=== PATIENT | male | born 1975 | race Caucasian/White ===

== ENCOUNTER 2017-05-23 18:21 | Emergency (ER) | payer OTHER, SELFPAY ==
[~2017-05-23] VITALS: Ht 185.4 cm; Wt 70.3 kg
[2017-05-23] MEDS ORDERED: LIDOCAINE 1% VIAL ONE (18:46)
--- NOTE | 2017-05-23 18:49 | ER.PDOC ---
General Chief Complaint: Extremities Stated Complaint: GASH ON LEFT ARM Time seen by MD: 18:47 Source: patient Exam Limitations: no limitations History of Present Illness Initial Comments Laceration left wrist Occurred: just prior to arrival Where: home Severity: moderate Context: laceration Allergies: Coded Allergies: Penicillins (Verified Allergy, Unknown, Rash, 05/23/17) Past Medical History Medical History: asthma Surgical History: appendectomy Social History Smoking: cigarettes, greater than 1 pack/day Alcohol Use: none Drug Use: none Review of Systems Constitutional: no symptoms reported Respiratory: no symptoms reported Cardiovascular: no symptoms reported Gastrointestinal: no symptoms reported Skin: see HPI All Other Systems: Reviewed and Negative Physical Exam General Appearance: Alert, No Apparent Distress Hand: nml inspection, non-tender, no evidence FB Wrist: see diagram 1 - Lac Neuro: sensation nml, motor nml Vascular: no vascular compromise Tendons: tendon visualized, injury seen, tendon function deficit Head/ENT: nml inspection, pharynx nml Neck/Back: nml inspection, non-tender Resp/CVS: no resp distress, lungs clear, heart sounds nml, reg. rate & rhythm Abdomen: non-tender, no organomegaly Laceration/Wound Repair Laceration/Wound Repair : Wound Location: left wrist Wound Length (cm): 4 Wound cleaned: betadine Anesthesia: 1% Lidocaine Volume Anesthetic (ccs): 10 Wound's Depth, Shape: linear, into muscle Irrigated w/ Saline (ccs): 30 Wound Repaired With: sutures Suture Size/Type: 4:0, ethilon Suture Style: interupted Number of Sutures: 6 Deep Layer Suture Size/Type: 4:0, vicryl Number Deep Layer Sutures: 4 Sterile Dressing Applied?: Yes Progress Progress Called and spoke to Dr. Damian because of tendon injury, he told me to close Laceration and have patient go to his office and see him tomorrow at 9am. Told patient and he voiced understanding. Departure Time of Disposition: 19:29 Disposition: 01 HOME, SELF-CARE Impression: Primary Impression: Laceration of wrist, left Qualified Codes: S61.512A - Laceration without foreign body of left wrist, initial encounter Condition: Stable Referrals: PCP,UNKNOWN (PCP) PRIMARY CARE PROVIDER Additional Instructions: Tramadol Keflex Follow up with Dr. Damian tomorrow at 9am ROBERTO GARNER MD May 23, 2017 18:49
[2017-05-23] MEDS ORDERED: BOOSTRIX VACCINE SYRINGE IM STA (19:31)
[2017-05-23] MEDS ORDERED: TRIPLE ANTIBIOTIC OINTMENT TP ONE (19:32)
[2017-05-23] MEDS ORDERED: TETANUS DIPHTHERIA TOXOIDS IM ONE (19:32)
[2017-05-23 19:44] VITALS: BP 162/87
[2017-05-24] MEDS ORDERED: TRAM50TA PO (15:05)
[2017-05-24] MEDS ORDERED: IBUP200C8 PO (15:05)
[2017-05-24] MEDS ORDERED: CHOL10005 PO (15:05)
[2017-05-24] MEDS ORDERED: MULT1TAB52 PO (15:05)
== END 2017-05-23 19:42 | disposition home or self-care (01) ==
LOC: EDBD 18:21 → ER 18:21
DX: S61.512A Laceration without foreign body of left wrist, initial encounter (principal); F17.210 Nicotine dependence, cigarettes, uncomplicated; Z88.0 Allergy status to penicillin; X58.XXXA Exposure to other specified factors, initial encounter; Y93.89 Activity, other specified; Y92.009 Unspecified place in unspecified non-institutional (private) residence as the place of occurrence of the external cause; Y99.8 Other external cause status
CPT/HCPCS: 12032; 90471; 90714; 99284; J2001

== ENCOUNTER 2017-05-27 02:57 | Day surgery (SDC) | payer OTHER, SELFPAY ==
[2017-05-27] VITALS (11 sets, daily range): BP systolic 133–161; BP diastolic 78–99
[~2017-05-27] VITALS: Ht 185.4 cm; Wt 68.0 kg
[~2017-05-27 02:57] MED LIST: CHOL10005 PO; IBUP200C8 PO; MULT1TAB52 PO; TRAM50TA PO
[2017-05-27] MEDS ORDERED: LACTATED RINGERS 1,000 ML ONE ×2 (04:52→08:58)
[2017-05-27] MEDS ORDERED: CEPH-350 PO (06:06)
[2017-05-27] MEDS: LACTATED RINGERS 1,000 ML IV SCH ×2 (06:13→09:00)
[2017-05-27] MEDS ORDERED: DECADRON ONE (06:43)
[2017-05-27] MEDS ORDERED: NEOSTIGMINE ONE (06:44)
[2017-05-27] MEDS ORDERED: ZOFRAN ONE (06:44)
[2017-05-27] MEDS ORDERED: XYLOCAINE ONE (06:44)
[2017-05-27] MEDS ORDERED: TORADOL ONE (06:44)
[2017-05-27] MEDS ORDERED: ZEMURON IV ONE (06:44)
[2017-05-27] MEDS ORDERED: SUBLIMAZE ONE (06:45)
[2017-05-27] MEDS ORDERED: DILAUDID ONE ×2 (06:45→09:49)
[2017-05-27] MEDS ORDERED: VERSED ONE (06:45)
[2017-05-27] MEDS ORDERED: DIPRIVAN IV ONE (06:46)
[2017-05-27] MEDS ORDERED: SODIUM CHLORIDE IR ONE (07:13)
[2017-05-27] MEDS ORDERED: VENTOLIN IH ONE ×2 (07:13→07:30)
[2017-05-27] MEDS ORDERED: SENSORCAINE-MPF 0.5% VIAL ONE (07:41)
[2017-05-27] MEDS ORDERED: XYLOCAINE 2%-EPI 1:100,000 ONE (07:41)
[2017-05-27] MEDS ORDERED: ANCEF ONE (08:32)
[2017-05-27] MEDS ORDERED: ANCEF 1 GM in NS 100ML 100 ML IV ONE (08:35)
[2017-05-27] MEDS: DILAUDID IV PRN ×2 (09:53→10:00)
[2017-05-27] MEDS ORDERED: ZOFRAN IV PRN (10:00)
[2017-05-27] MEDS ORDERED: PHENERGAN IV PRN (10:00)
[2017-05-27] MEDS ORDERED: BENADRYL IV PRN (10:00)
[2017-05-27] MEDS ORDERED: DILAUDID IV PRN (10:00)
--- NOTE | 2017-05-27 10:08 | OPH ---
DATE OF SURGERY: 05/27/2017 PREOPERATIVE DIAGNOSIS: Laceration of dorsal aspect of left forearm with extensor tendon laceration to little finger. POSTOPERATIVE DIAGNOSIS: Laceration of dorsal aspect of left forearm with extensor tendon laceration to little finger, plus laceration of the extensor digitorum communis tendons to the index, long, ring, and little fingers. OPERATIVE PROCEDURES: 1. Incision and debridement of left forearm wound. 2. Repair of extensor digitorum communis tendons to the index, long, ring, and little fingers. SURGEON: Waqas Damian MD TAG CLERK: Susan Borja PA-C ANESTHESIA: LMA TOURNIQUET TIME: 57 minutes at 300 mmHg DRAINS: None BLOOD LOSS: 10 mL DESCRIPTION OF INDICATIONS: The patient is a 42-year-old male, who about 5 days ago, was using the minor saw and cut the dorsal aspect of his left forearm at the distal third. The patient was seen in the Emergency Room and his wounds were irrigated and closed. He was unable to extend his little finger, but was able to extend the wrist as well as his other fingers. He was seen in the office last week and scheduled for an incision and debridement of his wound with repair of the extensor tendons. DESCRIPTION OF PROCEDURE: This patient was placed on the operating table in the supine position. LMA anesthesia was induced without difficulty. The patient had a well-padded tourniquet placed around the left upper extremity. The left upper extremity was then sterilely prepped and draped. The arm was exsanguinated with an Esmarch and then inflated to 300 mmHg. The patient's incision which was transverse, was excised full thickness, in an elliptical manner. The fourth dorsal compartment was explored. He had lacerations of basically of all of the common extensor tendons except for the index finger, which had a laceration to the proprius tendon. The extensor thumb tendon was intact. The ulnar wrist extensor was intact. The wounds were copiously irrigated. The proximal and distal ends of the tendons were identified. The tendons were repaired with a 3-0 Prolene in an interrupted [id number] manner. We then reinforced the repair with a running 3-0 Ethilon. At the end, the patient was able to bring the fingers down onto the palm of his hand with the wrist in neutral position. The wounds were irrigated and then closed. The skin was closed with 3-0 Ethilon in an interrupted manner. A compressive dressing was applied. The patient was extubated in the operating room after an extension splint was applied and sent to recovery in a stable condition. Waqas Damian MD DR: KISHORE/micheal JOB# [id number]
[2017-05-27] MEDS ORDERED: ACET-687 PO (10:09)
[2017-05-27] MEDS ORDERED: SULF1TAB24 PO (10:10)
== END 2017-05-27 10:35 | disposition home or self-care (01) | DRG 605 ==
LOC: EDBD → SURG 02:57
PROVIDERS: ATTEND Orthopaedic Surgery
DX: S51.812A Laceration without foreign body of left forearm, initial encounter (principal); S56.428A Laceration of extensor muscle, fascia and tendon of left little finger at forearm level, initial encounter; S56.422A Laceration of extensor muscle, fascia and tendon of left index finger at forearm level, initial encounter; S56.426A Laceration of extensor muscle, fascia and tendon of left ring finger at forearm level, initial encounter; S56.424A Laceration of extensor muscle, fascia and tendon of left middle finger at forearm level, initial encounter; J45.909 Unspecified asthma, uncomplicated; W45.8XXA Other foreign body or object entering through skin, initial encounter; Y93.89 Activity, other specified; Y92.89 Other specified places as the place of occurrence of the external cause; Y99.8 Other external cause status; Z98.890 Other specified postprocedural states; Z90.49 Acquired absence of other specified parts of digestive tract; Z88.1 Allergy status to other antibiotic agents; Z88.0 Allergy status to penicillin; Z72.89 Other problems related to lifestyle; F17.210 Nicotine dependence, cigarettes, uncomplicated
CPT/HCPCS: 26418 ×3; 94640; A4649 ×2; J0690; J1100; J1170 ×2; J1885; J2250; J2405; J3010; J3490 ×4; J7030; J7120 ×2; J7613; J2710

== ENCOUNTER 2018-07-07 17:27 | Emergency (ER) | payer OTHER, SELFPAY ==
[~2018-07-07] VITALS: Ht 188 cm; Wt 65.8 kg
[~2018-07-07 17:27] MED LIST changes: +ACET-687 PO; +CEPH-350 PO; +SULF1TAB24 PO
[2018-07-07 18:26] VITALS: BP 120/55
--- NOTE | 2018-07-07 18:57 | DIREP ---
PROCEDURE:CHEST 2 VIEWS COMPARISON:None. INDICATIONS:cough x 2 weeks FINDINGS: LUNGS/PLEURA:Dense alveolar opacity is noted in the right upper lobe consistent with pneumonia. The lungs are hyperexpanded suggesting underlying COPD. VASCULATURE:Normal. Unremarkable pulmonary vasculature. Atherosclerotic disease of the thoracic aorta is noted. CARDIAC:Normal. No cardiac silhouette abnormality or cardiomegaly. MEDIASTINUM:Normal. No visible mass or adenopathy. BONES:Normal. No fracture or visible bony lesion. OTHER:Negative. CONCLUSION: 1. Right upper lobe pneumonia upon a background of chronic lung disease. Dictated by: Eulalio Up M.D. on 07/07/2018 at 06:54 PM
--- NOTE | 2018-07-07 19:13 | ER.PDOC ---
General Chief Complaint: Cough/Congestion Stated Complaint: SOB,COUGH/CONGESTION Time seen by MD: 18:50 Source: patient, family Exam Limitations: no limitations History of Present Illness Initial Comments the patient presents to the ER complaining of 2 week h/o productive cough, occasional SOB, and subjective fever. the patient smokes about 2 packs of cigarettes daily. he denies n/v, c/d, urinary c/o, neck/back pain, cp, ap, extremity pain, swelling, or rash. no other allev/exac factors. no other complaints. Allergies: Coded Allergies: Penicillins (Verified Allergy, Severe, Anaphylaxis Shock, 05/24/17) amoxicillin (Verified Allergy, Unknown, Rash, 05/24/17) Home Meds Reported Medications Sulfamethoxazole/Trimethoprim (BACTRIM DS TABLET) 1 Each Tablet, 1 TAB PO BID, # 20 TAB 05/27/17 Acetaminophen With Codeine (TYLENOL WITH CODEINE #4 TABLET) 1 Each Tablet, 1-2 TAB PO Q6 PRN for PAIN, #30 TAB 1 Refill 05/27/17 Cephalexin (KEFLEX) 500 Mg Capsule, 1 CAP PO BID, #14 CAP 05/27/17 Tramadol Hcl (TRAMADOL HCL) 50 Mg Tablet, 1 TAB PO TID PRN for PAIN, #90 TAB 05/24/17 Cholecalciferol (Vitamin D3) (VITAMIN D3) 1,000 Unit Tablet, 1000 UNIT PO DAILY , TABLET 05/24/17 Multivitamin (MULTIVITAMINS) 1 Each Tablet, 1 TAB PO DAILY, #90 TAB 3 Refills 05/24/17 Constitutional: fever, malaise EENTM: no symptoms reported Respiratory: cough, shortness of breath Cardiovascular: no symptoms reported Gastrointestinal: no symptoms reported Genitourinary: no symptoms reported Musculoskeletal: no symptoms reported Skin: no symptoms reported Psychiatric/Neurological: no symptoms reported Endocrine: no symptoms reported All Other Systems: Reviewed and Negative Past Medical History Medical History: no pertinent history Surgical History: appendectomy, other Social History Smoking: greater than 1 pack/day Alcohol Use: none Drug Use: none Physical Exam General Appearance: alert, no distress Eye: eyes nml inspection, lids & conjunct. nml, PERRL, no nystagmus Ear: ear nml Nose: nose nml Throat: pharynx nml, airway nml Neck: nml inspection, supple Respiratory: no resp.distress, wheezes (occasional scattered), rales (right anterior field) Abdomen: non-tender, no organomegaly CVS: reg rate & rhythm, heart sounds nml Skin: color nml, no rash, warm/dry Extremities: non-tender, nml ROM, no pedal edema NEURO/PSYCH: oriented x 3, CN's nml as tested, motor nml, sensation nml, mood/ affect nml Progress Progress the patient has remained hemodynamically stable, afebrile and neurologically intact while in the ER. the patient was counseled on pneumonia, smoking cessation. the patient was offered nebulizer treatment but declines. the patient was advised to f/u with pmd in 1-2 days or return for worsening symptoms /concerns. Rx: further diagnostic eval/therapeutic interventions offered but declined at this time. EKG/XRAY/CT/US XRAY: chest (RUL infiltrate) Departure Time of Disposition: 19:08 Disposition: 01 HOME, SELF-CARE Impression: Primary Impression: Pneumonia Condition: Stable Patient Instructions: Pneumonia, Adult Referrals: PCP,UNKNOWN (PCP) PRIMARY CARE PROVIDER Additional Instructions: please follow up with your doctor as needed. take tylenol or motrin for fever. drink gatorade. Duration or Time Spent with Pa: 20 LOVE CHAUHAN MD Jul 07, 2018 19:13
[2018-07-07 19:32] VITALS: BP 120/55
== END 2018-07-07 19:30 | disposition home or self-care (01) ==
LOC: ER 17:27
DX: J18.9 Pneumonia, unspecified organism (principal); F17.210 Nicotine dependence, cigarettes, uncomplicated; Z88.0 Allergy status to penicillin; Z79.899 Other long term (current) drug therapy; Z90.49 Acquired absence of other specified parts of digestive tract; Z79.2 Long term (current) use of antibiotics
CPT/HCPCS: 71046; 99283

== ENCOUNTER 2018-07-17 18:58 | Emergency (ER) | payer OTHER ==
[~2018-07-17] VITALS: Ht 188 cm; Wt 65.8 kg
[2018-07-17 19:11] VITALS: BP 125/75
[2018-07-17 19:48] LABS: BASOPHIL # 0.1 10^3/uL (0.0-0.1); BASOPHIL % 0.3 % (0.0-0.2); EOSINOPHIL # 0.2 10^3/uL (0.0-0.2); EOSINOPHIL % 1.4 % (0.0-5.0); HEMOGLOBIN 11.4 g/dL (13.9-16.3); LYMPHOCYTES # 2.1 10^3/uL (1.0-4.8); LYMPHOCYTES % 14.9 % (24.0-44.0); MEAN CELL HGB 29.6 pg (26-34); MEAN CELL HGB CONCENTRATION 33.3 g/dL (33-37); MEAN CORP VOLUME 88.8 fL (78-100); MONOCYTES # 1.6 10^3/uL (0.3-0.8); MONOCYTES % 11.4 % (5.0-12.0); NEUTROPHIL # 10.3 10^3/uL (1.8-7.7); NEUTROPHILS % 71.7 % (41.0-85.0); RED CELL DISTRIBUTION WIDTH 12.9 % (11.5-14.5); WHITE BLOOD CELL 14.3 10^3/uL (4.5-11.0)
[2018-07-17 20:06] LABS: CALCIUM 9.2 mg/dL (8.4-10.5); CARBON DIOXIDE 26.9 mmol/L (20.0-32)
--- NOTE | 2018-07-17 20:44 | DIREP ---
PROCEDURE:CHEST 1 VIEW COMPARISON:[facility], CR, XRAY CHEST 2 VWS, 07/07/2018, 06:24 PM. INDICATIONS:pna FINDINGS: LUNGS/PLEURA:Worsening right upper lobe airspace disease compatible with pneumonia. Background chronic obstructive pulmonary disease changes similar to prior exam. VASCULATURE:Normal. Unremarkable pulmonary vasculature. CARDIAC:Normal. No cardiac silhouette abnormality or cardiomegaly. MEDIASTINUM:Normal. No visible mass or adenopathy. BONES:Normal. No fracture or visible bony lesion. OTHER:Negative. CONCLUSION:Worsening right upper lobe suspected pneumonia. Recommend follow-up to resolution. Dictated by: Ag Mcelroy DO on 07/17/2018 at 08:42 PM
--- NOTE | 2018-07-17 21:23 | ER.PDOC ---
General Chief Complaint: Dyspnea/Respdistress Stated Complaint: PNUEMONIA Time seen by MD: 19:15 Source: patient Exam Limitations: no limitations History of Present Illness Initial Comments Pt was diagnosed of PNA couple of weks ago and was given Zithromax which he completed. Pt reports that he still has symptoms of cough and sputum, and occassional fevers. Timing/Duration: last week Severity: moderate Associated Symptoms: fever/chills, cough, productive cough, mild SOB Worsen By: deep breathing Prior symptoms/Treatment: Similar symptoms previous Allergies: Coded Allergies: Penicillins (Verified Allergy, Severe, Anaphylaxis Shock, 05/24/17) amoxicillin (Verified Allergy, Unknown, Rash, 05/24/17) Home Meds Reported Medications Sulfamethoxazole/Trimethoprim (BACTRIM DS TABLET) 1 Each Tablet, 1 TAB PO BID, # 20 TAB 05/27/17 Acetaminophen With Codeine (TYLENOL WITH CODEINE #4 TABLET) 1 Each Tablet, 1-2 TAB PO Q6 PRN for PAIN, #30 TAB 1 Refill 05/27/17 Cephalexin (KEFLEX) 500 Mg Capsule, 1 CAP PO BID, #14 CAP 05/27/17 Tramadol Hcl (TRAMADOL HCL) 50 Mg Tablet, 1 TAB PO TID PRN for PAIN, #90 TAB 05/24/17 Cholecalciferol (Vitamin D3) (VITAMIN D3) 1,000 Unit Tablet, 1000 UNIT PO DAILY , TABLET 05/24/17 Multivitamin (MULTIVITAMINS) 1 Each Tablet, 1 TAB PO DAILY, #90 TAB 3 Refills 05/24/17 Constitutional: fever EENTM: no symptoms reported Respiratory: cough, shortness of breath Cardiovascular: no symptoms reported Gastrointestinal: no symptoms reported Genitourinary: no symptoms reported Musculoskeletal: no symptoms reported Skin: no symptoms reported Psychiatric/Neurological: no symptoms reported Endocrine: no symptoms reported Hematologic/Lymphatic: no symptoms reported Past Medical History Medical History: asthma Surgical History: appendectomy, tonsillectomy Family History Significant Family History: no pertinent family hx Social History Smoking: less than 1 pack/day Alcohol Use: none Drug Use: none Reviewed Nursing Reviewed: Nursing Assessment Physical Exam General Appearance: alert, no distress Eye: eyes nml inspection Ear: ear nml Nose: nose nml Throat: pharynx nml Neck: nml inspection Respiratory: no resp.distress, breath sounds nml Abdomen: non-tender CVS: reg rate & rhythm Skin: color nml, no rash Extremities: non-tender NEURO/PSYCH: oriented x 3, motor nml Results/Orders Results/Orders Laboratory Tests Test 07/17/18 00:00 07/17/18 19:34 07/17/18 19:40 Influenza Type A Antigen NEGATIVE (NEG) Influenza B Immunofluorescence NEGATIVE (NEG) White Blood Count 14.3 10^3/uL (4.5-11.0) Red Blood Count 3.85 10^6/uL (4.50-5.90) Hemoglobin 11.4 g/dL (13.9-16.3) Hematocrit 34.2 % (37.0-53.0) Mean Corpuscular Volume 88.8 fL (78-100) Mean Corpuscular Hemoglobin 29.6 pg (26-34) Mean Corpuscular Hemoglobin Concent 33.3 g/dL (33-37) Red Cell Distribution Width 12.9 % (11.5-14.5) Platelet Count 769 10^3/uL (150-400) Mean Platelet Volume 8.0 fL (7.8-11.0) Neutrophils (%) (Auto) 71.7 % (41.0-85.0) Lymphocytes (%) (Auto) 14.9 % (24.0-44.0) Monocytes (%) (Auto) 11.4 % (5.0-12.0) Neutrophils # (Auto) 10.3 10^3/uL (1.8-7.7) Lymphocytes # (Auto) 2.1 10^3/uL (1.0-4.8) Monocytes # (Auto) 1.6 10^3/uL (0.3-0.8) Absolute Immature Granulocyte (auto 0.05 10^3 u/L (0-2) Eosinophils % 1.4 % (0.0-5.0) Basophils % 0.3 % (0.0-0.2) Basophils # 0.1 10^3/uL (0.0-0.1) Eosinophil Count 0.2 10^3/uL (0.0-0.2) Percent Immature Gran (Cell Imm) 0.30 % (0.00-0.50) Sodium Level 132 mmol/L (132-145) Potassium Level 3.9 mmol/L (3.6-5.2) Chloride Level 93.0 mmol/L (96-109) Carbon Dioxide Level 26.9 mmol/L (20.0-32) Anion Gap 16.0 Blood Urea Nitrogen 7 mg/dL (7-18) Creatinine 0.81 mg/dL (0.59-1.40) Estimated GFR () 125.8 (>/=60) BUN/Creatinine Ratio 8.0 Glucose Level 103 mg/dL (70-110) Calcium Level 9.2 mg/dL (8.4-10.5) Total Bilirubin 0.3 mg/dL (0.2-1.0) Aspartate Amino Transf (AST/SGOT) 41 U/L (0-35) Alanine Aminotransferase (ALT/SGPT) 54 U/L (12-78) Alkaline Phosphatase 667 U/L (50-136) Total Protein 7.3 g/dL (6.4-8.2) Albumin 2.5 g/dL (3.4-5.0) Globulin 4.8 Progress Progress Labs showed increased WBC and CXR was showing Rt Upper Lobe Pneumonia. Will start the pt on Levauin for 7 days. Departure Time of Disposition: 21:21 Disposition: 01 HOME, SELF-CARE Impression: Primary Impression: Pneumonia Condition: Stable Referrals: PCP,UNKNOWN (PCP) PRIMARY CARE PROVIDER Duration or Time Spent with Pa: 20 Critical Care Note Total Time (mins): 0 ZIARE US MD Jul 17, 2018 21:23
[2018-07-17] MEDS ORDERED: LEVAQUIN PO STA (21:24)
[2018-07-17] MEDS ORDERED: LEVAQUIN ONE (21:25)
[2018-07-17 21:43] VITALS: BP 126/75
== END 2018-07-17 21:36 | disposition home or self-care (01) ==
LOC: ER 18:58
DX: J18.1 Lobar pneumonia, unspecified organism (principal); F17.210 Nicotine dependence, cigarettes, uncomplicated; Z90.89 Acquired absence of other organs; Z90.49 Acquired absence of other specified parts of digestive tract; Z88.0 Allergy status to penicillin; Z79.2 Long term (current) use of antibiotics; Z79.899 Other long term (current) drug therapy
CPT/HCPCS: 36415; 71045; 80053; 85025; 86710 ×2; 87040 ×2; 99284; J1956